=== PATIENT | female | born 1970 | race African-American/Black ===

== ENCOUNTER → 2016-09-07 | Outpatient (CLI) | payer BC ==
[~2016-09-07] MED LIST: ONDA4TAB65 PO; OXYC-57 PO
== END | disposition home or self-care (01) ==
LOC: C.PATHSPEC 17:13
PROVIDERS: ATTEND Obstetrics & Gynecology
DX: N84.1 Polyp of cervix uteri (principal)

== ENCOUNTER → 2016-09-07 | Outpatient (CLI) | payer BC | END | disposition home or self-care (01) | LOC: C.PAPS 11:54 | PROVIDERS: ATTEND Obstetrics & Gynecology | DX: Z01.419 Encounter for gynecological examination (general) (routine) without abnormal findings (principal) ==

== ENCOUNTER → 2017-04-09 | Outpatient (CLI) | payer BC | END | disposition home or self-care (01) | LOC: C.PATHSPEC 16:26 | PROVIDERS: ATTEND Obstetrics & Gynecology | DX: N92.0 Excessive and frequent menstruation with regular cycle (principal) ==

== ENCOUNTER 2017-04-12 07:13 | Observation (INO) | payer BC ==
[2017-04-09 14:45] VITALS: BMI 28.0
--- NOTE | 2017-04-09 15:14 | PAT Medication Instructions ---
Service Date Apr 09, 2017. Current Home Medication List No Active Prescriptions or Reported Meds Medication Instructions For Your Scheduled Surgery No Active Prescriptions or Reported Meds-- Please contact PAT department if starting any medications prior to surgery. If you have any questions please call us at [phone] or [phone] or [phone]
[2017-04-09 16:36] LABS: BASO % 0.6 %; BASO ABS # 0.03 K/uL (0-0.2); COMPLETE YES; EOS % 3.7 %; HEMATOCRIT 39.2 % (37-47); LYMPH % 48.4 %; LYMPH ABS # 2.47 K/uL (1.2-3.4); MEAN CELL VOLUME 84.1 fL (80-100); MEAN CORPUSCULAR HEMOGLOBIN 29.8 pg (25-34); MEAN CORPUSCULAR HGB CONC 35.5 g/dl (32-36); MEAN PLATELET VOLUME 12.1 fL (7.4-10.4); MONO % 6.7 %; NEUT % 40.6 %; PLATELET COUNT 236 K/uL (130-400); RED BLOOD COUNT 4.66 M/uL (4.2-5.4)
[2017-04-09 16:41] LABS: URINE APPEARANCE CLEAR (CLEAR); URINE BILIRUBIN NEG (NEG); URINE COLOR YELLOW; URINE NITRITE NEG (NEG); URINE SPECIFIC GRAVITY 1.031 (1.000-1.030); UROBILINOGEN NEG (NEG)
[2017-04-09 16:42] LABS: MANUAL MICROSCOPIC REQUIRED? NO; REVIEW REQ? NO
[2017-04-09 16:47] LABS: ALT/SGPT 31 U/L (12-78); AST/SGOT 20 U/L (15-37); BLOOD UREA NITROGEN 13 mg/dl (7-18); CALCIUM 8.6 mg/dl (8.5-10.1); CARBON DIOXIDE 24 mmol/L (21-32); CHLORIDE 108 mmol/L (98-107); CREATININE 0.82 mg/dl (0.60-1.20); GLUCOSE 85 mg/dl (70-99); POTASSIUM 3.8 mmol/L (3.5-5.1); SODIUM 139 mmol/L (136-145)
[2017-04-09 16:50] LABS: ALB/GLOB RATIO 0.9 (0.9-2); ALKALINE PHOSPHATASE 42 U/L (45-117)
[~2017-04-12] VITALS: Ht 162.6 cm; Wt 73.8 kg
[2017-04-12] VITALS (7 sets, daily range): BP systolic 102–138; BP diastolic 57–88; PULSE 56–78; TEMP 36.3–37.1; O2SAT 98–100; Ht 162.6 cm; Wt 73.8 kg
[~2017-04-12 07:13] MED LIST changes: +CEFAZOLIN 2000 MG/60 ML D5W 50 ML IV SCH; +LACTATED RINGER'S 1000ML 1,000 ML IV SCH; -ONDA4TAB65 PO; -OXYC-57 PO
--- NOTE | 2017-04-12 08:26 | History & Physical Bridge Note ---
H&P Re-Evaluation Bridge Note: I have examined the patient, reviewed the History & Physical and in the interval since the performance of the History & Physical I have noted the following changes of clinical significance: I have reviewed the procedure with patient; after discussion with both her and her oncologist (Dr Millan), will plan to preserve ovaries - as patient's breast cancer was triple negative and she was BRCA negative. Patient is in agreement.
[2017-04-12 08:27] LABS: PREG INTERNAL NEGATIVE QC NEG CLEAR BACKGROUND; PREG INTERNAL POSITIVE QC POS CONTROL LINE
[2017-04-12] MEDS ORDERED: METHYLENE BLUE 0.5% 10 ML VIAL ONE (08:30)
[2017-04-12] MEDS ORDERED: BUPIVACAINE 0.5 % 5 MG/1 ML MPF 30ML VIAL ONE (08:30)
[2017-04-12] MEDS ORDERED: ROCURONIUM BROMIDE 10 MG/ML 5 ML VIAL IV ONE ×2 (08:37→10:10)
[2017-04-12] MEDS ORDERED: FENTANYL CITRATE INJ 50 MCG/1 ML 2 ML VIAL ONE (08:37)
[2017-04-12] MEDS ORDERED: MIDAZOLAM HCL 1 MG/ML 2ML VIAL ONE (08:37)
[2017-04-12] MEDS ORDERED: EpHEDrine SULFATE INJ 50 MG/ML AMP ONE ×2 (08:37→10:26)
[2017-04-12] MEDS ORDERED: ONDANSETRON INJ 2 MG/ML 2 ML VIAL ONE (08:37)
[2017-04-12] MEDS ORDERED: SUCCINYLCHOLINE CHLORIDE 20 MG/ML 10 ML VIAL IV ONE (08:37)
[2017-04-12] MEDS ORDERED: GLYCOPYRROLATE INJ 0.2 MG/ML VIAL ONE ×2 (08:37→10:57)
[2017-04-12] MEDS ORDERED: NEOSTIGMINE METHYLSULFATE 5 MG/5 ML SYR ONE ×2 (08:37→10:57)
[2017-04-12] MEDS ORDERED: PROPOFOL IV EMULSION 10 MG/ML 20 ML VIAL IV ONE (08:37)
[2017-04-12] MEDS ORDERED: DEXAMETHASONE SOD INJ 4 MG/ML VIAL ONE (08:37)
[2017-04-12] MEDS ORDERED: LIDOCAINE HCL 2% 2 ML VIAL (20MG/ML) ONE (08:37)
[2017-04-12] MEDS ORDERED: PHENYLEPHRINE HCL INJ 10 MG/ML VIAL ONE (08:37)
[2017-04-12] MEDS ORDERED: HYDROmorphone INJ 2 MG/ML SYR/VIAL ONE (09:44)
[2017-04-12] MEDS ORDERED: WATER, STERILE FOR INJ 10 ML VIAL ONE (09:45)
[2017-04-12] MEDS ORDERED: FLUMAZENIL 0.1 MG/1 ML 10 ML VIAL IV PRN (10:30)
[2017-04-12] MEDS ORDERED: LABETALOL HCL IV 5 MG/ML 20ML IV PRN (10:30)
[2017-04-12] MEDS ORDERED: ONDANSETRON INJ 2 MG/ML 2 ML VIAL IV PRN (10:30)
[2017-04-12] MEDS ORDERED: EpHEDrine SULFATE INJ 50 MG/ML AMP IV PRN (10:30)
[2017-04-12] MEDS ORDERED: PROMETHAZINE HCL INJ 12.5 MG in SODIUM CHLORIDE 0.9% 50ML 50 ML IV PRN ×2 (10:30→12:15)
[2017-04-12] MEDS ORDERED: NALOXONE HCL 0.4 MG/1 ML VIAL/CARP IV PRN (10:30)
[2017-04-12] MEDS ORDERED: ATROPINE SULFATE 0.1 MG/ML 5ML SYR IV PRN (10:30)
[2017-04-12] MEDS ORDERED: TISSEEL FIBRIN SEALANT 4ML TOP ONE (11:21)
[2017-04-12] MEDS ORDERED: ACETAMINOPHEN 325 MG TAB PO PRN (12:15)
[2017-04-12] MEDS ORDERED: KETOROLAC TROMETHAMINE 30 MG/ML VIAL IV. PRN (12:15)
[2017-04-12] MEDS ORDERED: SIMETHICONE 80 MG CHEW PO PRN (12:15)
[2017-04-12] MEDS ORDERED: OXYCODONE/ACETAMINOPHEN 5-325 TAB PO PRN ×2 (12:15)
[2017-04-12] MEDS ORDERED: MAGNESIUM HYDROXIDE SUSP 30 ML UDC PO PRN (12:15)
--- NOTE | 2017-04-12 12:18 | [facility] Post Operative Brief Note ---
Immediate Operative Summary Operative Date Apr 12, 2017. Pre-Operative Diagnosis Intermenstral Bleeding, Uterine Leiomyoma Post-Operative Diagnosis Same as preop Procedure(s) Performed Robotic-Assisted Total Laparoscopic Hysterectomy Bilateral Salpingectomy; Cystoscopy Surgeon Dr. Gonzalez Merchandise Presentation Manager Surgeon(s) None Estimated Blood Loss 10ml Findings Enlarged uterus, tubes s/p tubal ligation, normal-appearing ovaries. Right physiologic-appearing ovarian cyst. Appendix/bowel appear normal. On cystoscopy, bilateral urine jets from ureters noted. Bladder otherwise normal. Specimens A. Cervix, Uterus, Bilateral Fallopian Tubes Drains dubois Anesthesia general Complication(s) None Disposition Recovery Room / PACU
[2017-04-12] MEDS: HYDROmorphone INJ 1 MG/ML SYR IV PRN ×8 (12:38→13:13)
[2017-04-12] MEDS ORDERED: PROMETHAZINE HCL INJ 12.5 MG in SODIUM CHLORIDE 0.9% 50ML 50 ML IV STA (13:14)
[2017-04-12] MEDS ORDERED: MoRPHine SULFATE 10 MG/ML CARP/VIAL IV PRN (13:15)
[2017-04-12] MEDS ORDERED: MoRPHine SULFATE 10 MG/ML CARP/VIAL ONE (13:20)
[2017-04-12] MEDS ORDERED: KETOROLAC TROMETHAMINE 30 MG/ML VIAL ONE (13:32)
[2017-04-12] MEDS ORDERED: NURSING VERBAL MED ORDER ONE (13:45)
[2017-04-12] MEDS ORDERED: KETOROLAC TROMETHAMINE 30 MG/ML VIAL IV. SCH (13:45)
[2017-04-12] MEDS ORDERED: IV FLUIDS COMPLETED PRN (14:15)
--- NOTE | 2017-04-12 14:31 | Anesthesiology Progress Note ---
Anesthesia Post Op Note Date & Time Apr 12, 2017 at 14:30 Vital Signs Pain Intensity: 3 Vital Signs Past 12 Hours Date Time Temp Pulse Resp B/P (MAP) Pulse Ox O2 Delivery O2 Flow Rate FiO2 04/12/17 13:57 67 16 100 04/12/17 13:57 66 16 04/12/17 13:56 126/84 04/12/17 13:52 67 9 04/12/17 13:52 68 9 100 04/12/17 13:51 135/76 04/12/17 13:47 66 8 04/12/17 13:47 66 8 100 04/12/17 13:46 124/71 04/12/17 13:42 67 8 04/12/17 13:42 67 8 100 04/12/17 13:41 137/78 04/12/17 13:37 64 8 04/12/17 13:37 64 8 100 04/12/17 13:36 133/91 04/12/17 13:32 61 10 04/12/17 13:32 61 10 100 04/12/17 13:31 135/82 04/12/17 13:27 70 17 04/12/17 13:27 67 17 100 04/12/17 13:26 141/87 04/12/17 13:22 70 15 100 04/12/17 13:22 70 15 04/12/17 13:21 117/83 04/12/17 13:19 71 17 04/12/17 13:19 72 17 100 04/12/17 13:17 156/84 04/12/17 13:16 156/84 04/12/17 13:14 65 14 100 04/12/17 13:14 64 14 04/12/17 13:12 123/66 04/12/17 13:09 75 19 04/12/17 13:09 76 19 100 04/12/17 13:07 119/80 04/12/17 13:04 77 13 99 04/12/17 13:04 78 13 04/12/17 13:01 122/75 04/12/17 12:59 75 22 100 04/12/17 12:59 73 22 04/12/17 12:58 73 16 04/12/17 12:58 73 16 100 04/12/17 12:56 138/83 04/12/17 12:54 36.3 77 16 138/83 (97) 100 Nasal Cannula 2 04/12/17 12:53 72 17 100 04/12/17 12:53 71 17 04/12/17 12:51 131/68 04/12/17 12:48 73 18 04/12/17 12:48 71 18 100 04/12/17 12:46 132/87 04/12/17 12:45 103/69 04/12/17 12:43 76 21 98 04/12/17 12:43 76 21 04/12/17 12:38 76 20 04/12/17 12:38 74 20 100 04/12/17 12:37 126/68 04/12/17 12:33 77 16 100 04/12/17 12:33 77 16 04/12/17 12:31 130/65 04/12/17 12:28 72 19 04/12/17 12:28 72 19 100 04/12/17 12:27 130/76 04/12/17 12:26 78 15 04/12/17 12:26 79 15 100 04/12/17 12:21 73 19 04/12/17 12:21 73 19 140/76 100 04/12/17 12:16 72 15 135/70 100 04/12/17 12:16 73 15 04/12/17 12:11 77 13 04/12/17 12:11 77 13 100 04/12/17 12:07 149/68 04/12/17 12:06 95 16 100 04/12/17 12:06 96 16 04/12/17 12:06 36.4 85 12 149/68 100 Mask 10 04/12/17 08:04 36.7 56 16 137/86 (103) 100 Room Air Notes Mental Status: alert / awake / arousable, participated in evaluation Pt Amnestic to Procedure: Yes Nausea / Vomiting: adequately controlled Pain: adequately controlled Airway Patency, RR, SpO2: stable & adequate BP & HR: stable & adequate Hydration State: stable & adequate Anesthetic Complications: no major complications apparent
[2017-04-12] MEDS ORDERED: ONDA4TAB65 PO (19:26)
[2017-04-12] MEDS ORDERED: OXYC-57 PO (19:26)
--- NOTE | 2017-04-12 19:48 | OB/GYN Progress Note ---
NEUROPSYCHIATRIST Progress Note Date of Service Apr 12, 2017. Subjective conversation w/ patient, physical exam Ambulation: limited ambulation Voiding: no voiding problems Passing Gas: No Diet Tolerance: Clear Liquids Pain: requesting pain meds Review of Systems Constitutional: No problem reported Respiratory: No problem reported Cardiac: No problem reported Breast: No problem reported Abdomen: + nausea, No vomiting Female : No problem reported Objective Vital Signs Date Time Temp Pulse Resp B/P (MAP) Pulse Ox O2 Delivery O2 Flow Rate FiO2 04/12/17 17:15 37.0 73 18 138/73 (94) 100 Room Air 04/12/17 16:15 36.5 77 16 126/72 (90) 100 Nasal Cannula 2.0 04/12/17 15:15 100 Nasal Cannula 04/12/17 15:15 36.3 69 18 126/77 (93) 100 Nasal Cannula 2.0 04/12/17 14:45 68 14 126/73 (90) 100 Nasal Cannula 2.0 04/12/17 14:15 100 Nasal Cannula 2.0 04/12/17 14:15 36.4 65 16 131/88 (102) 100 Nasal Cannula 2.0 04/12/17 13:57 67 16 100 04/12/17 13:57 66 16 04/12/17 13:56 126/84 04/12/17 13:52 67 9 04/12/17 13:52 68 9 100 04/12/17 13:51 135/76 04/12/17 13:47 66 8 04/12/17 13:47 66 8 100 04/12/17 13:46 124/71 04/12/17 13:42 67 8 04/12/17 13:42 67 8 100 04/12/17 13:41 137/78 04/12/17 13:37 64 8 04/12/17 13:37 64 8 100 04/12/17 13:36 133/91 04/12/17 13:32 61 10 04/12/17 13:32 61 10 100 04/12/17 13:31 135/82 04/12/17 13:27 70 17 04/12/17 13:27 67 17 100 04/12/17 13:26 141/87 04/12/17 13:22 70 15 100 04/12/17 13:22 70 15 04/12/17 13:21 117/83 04/12/17 13:19 71 17 04/12/17 13:19 72 17 100 04/12/17 13:17 156/84 04/12/17 13:16 156/84 04/12/17 13:14 65 14 100 04/12/17 13:14 64 14 04/12/17 13:12 123/66 04/12/17 13:09 75 19 04/12/17 13:09 76 19 100 04/12/17 13:07 119/80 04/12/17 13:04 77 13 99 04/12/17 13:04 78 13 04/12/17 13:01 122/75 04/12/17 12:59 75 22 100 04/12/17 12:59 73 22 04/12/17 12:58 73 16 04/12/17 12:58 73 16 100 04/12/17 12:56 138/83 04/12/17 12:54 36.3 77 16 138/83 (97) 100 Nasal Cannula 2 04/12/17 12:53 72 17 100 04/12/17 12:53 71 17 04/12/17 12:51 131/68 04/12/17 12:48 73 18 04/12/17 12:48 71 18 100 04/12/17 12:46 132/87 04/12/17 12:45 103/69 04/12/17 12:43 76 21 98 04/12/17 12:43 76 21 04/12/17 12:38 76 20 04/12/17 12:38 74 20 100 04/12/17 12:37 126/68 04/12/17 12:33 77 16 100 04/12/17 12:33 77 16 04/12/17 12:31 130/65 04/12/17 12:28 72 19 04/12/17 12:28 72 19 100 04/12/17 12:27 130/76 04/12/17 12:26 78 15 04/12/17 12:26 79 15 100 04/12/17 12:21 73 19 04/12/17 12:21 73 19 140/76 100 04/12/17 12:16 72 15 135/70 100 04/12/17 12:16 73 15 04/12/17 12:11 77 13 04/12/17 12:11 77 13 100 04/12/17 12:07 149/68 04/12/17 12:06 95 16 100 04/12/17 12:06 96 16 04/12/17 12:06 36.4 85 12 149/68 100 Mask 10 04/12/17 08:04 36.7 56 16 137/86 (103) 100 Room Air Physical Exam General Appearance: uncomfortable, in pain Abdomen: non tender, soft Laboratory Results Last 24 Hours Test 04/12/17 07:46 Human Chorionic Gonadotropin, Qual NEG Assessment and Plan Post-Op (Day #0) Continue Routine Care: Patient experiencing pain and nausea after surgery. Will plan to keep her overnight to get both of these under control. She has rec'd toradol, dilaudid in PACU, no pain meds since. Will give 4mg morphine IV. Continue zofran prn.
[2017-04-12] MEDS: MoRPHine SULFATE 4 MG/ML 1 ML CARP\\VIAL IV PRN (19:52)
[2017-04-12 20:30] LABS: HEMATOCRIT 37.7 % (37-47)
[2017-04-12] MEDS: DOCUSATE SODIUM 100 MG CAP PO SCH (21:00)
--- NOTE | 2017-04-12 21:02 | OPERATIVE REPORT ---
DATE OF OPERATION: 04/12/2017 PREOPERATIVE DIAGNOSIS: 1. Intermenstrual bleeding. 2. Pelvic pain. 3. Uterine leiomyoma. POSTOPERATIVE DIAGNOSIS: Same. PROCEDURES PERFORMED: 1. Robotic assisted total laparoscopic hysterectomy. 2. Bilateral salpingectomy 3. Cystoscopy. SURGEON: Nellie Gonzalez DO. TREATMENT SUPERVISOR: None. ESTIMATED BLOOD LOSS: 10 mL FINDINGS: Enlarged uterus, tubes are status post tubal ligation with normal appearing ovaries, right physiologic appearing ovarian cyst. Appendix and bowel appear normal on cystoscopy, bilateral urine jets from ureters noted, bladder otherwise normal. SPECIMENS: Cervix and uterus and bilateral fallopian tubes. DRAINS: Schafer catheter to gravity, clear yellow at conclusion of case. ANESTHESIA: General. COMPLICATIONS: None. DISPOSITION: Stable and good to recovery room. INDICATIONS FOR PROCEDURE: The patient is a 46-year-old G1, P1 with 2 additional step children, who had presented with chronic pelvic pain, heavy irregular menses and was known to have multiple uterine fibroids. Due to history of breast cancer, she is not a candidate for hormonal treatment and had tried NSAID to no avail. She elected to proceed with surgery. DESCRIPTION OF THE PROCEDURE: The patient was seen in the preoperative holding area where risks, benefits, alternatives to surgery were reviewed. She elected to proceed with the case. She was taken to the operating room where general anesthesia was introduced. She was prepared and draped in the usual sterile fashion with feet in Yellofin stirrups in the dorsal lithotomy position. A timeout was confirmed. The Schafer catheter was placed with clear yellow urine. A weighted speculum was placed in the vagina. Cervix was visualized, its anterior lip was grasped with a single tooth tenaculum. A stitch was placed at 3 o'clock and 9 o'clock on the cervix and the uterine manipulator was placed. Gloves were changed and attention was then turned to the abdomen. Prior to incision, the bilateral ureters were visualized peristalsing. Using the open Yandy technique, the supraumbilical incision was created and the trocar was inserted, camera was inserted to ensure intraabdominal placement. CO2 gas was used to inflate the abdomen to 15 mmHg. The patient was placed in Trendelenburg position. The above noted findings were seen. Bilateral trocars were then placed under direct visualization. The robot was docked. The left fallopian tube was then grasped and using monopolar scissors, was transected from the mesosalpinx. This was removed through the anesthesiology physician assistant port and sent to pathology. Next, the uteroovarian ligament was coagulated and transected followed by the round ligament. The left side of the uterus was skeletonized and the bladder flap was created on the anterior aspect of the uterus. The bladder was pushed down on the anterior aspect. The uterine artery was coagulated and transected. On the right side, the fallopian tube was transected using monopolar scissors from the underlying mesosalpinx. This was removed through the anesthesiology physician assistant port and sent to pathology as a single specimen. In a similar fashion to the left side, the uteroovarian and round ligaments were taken down and the bladder flap was connected and pushed away from the cuff. The uterine arteries were coagulated and transected. The vaginal cuff was then entered using monopolar scissors. The uterus and cervix were then amputated from the vaginal cuff and removed without difficulty through the vagina. The cuff was then reapproximated using O V-Loc suture in a running stitch. Excellent hemostasis was observed. A low pressure test was performed and the intra-abdominal pressure was taken down to 0. Again excellent hemostasis was observed. Methylene blue was given to aid in our cystoscopy and Tisseel hemostatic agent was applied to the vaginal cuff. Attention was then turned to the bladder to perform cystoscopy. The Schafer catheter was removed. Cystoscopy was performed. The bladder was visualized. Bilateral urine flow jets were noted from bilateral ureters and the bladder looked normal as well. The cystoscope was removed and a Schafer catheter was replaced. The robot was undocked and all trocars were removed, gas was desufflated from the abdomen. The fascial incision at the supraumbilical trocar site was reapproximated using 0 Vicryl and all incisions were reapproximated at this level of the skin with 4-0 Vicryl in a running subcuticular stitch. Dermabond glue was applied. The patient tolerated the procedure well. Sponge, instrument and needle counts were correct at the conclusion of the case x2. The patient was then taken to recovery room in stable and good condition. I attest to the content of the Intraoperative Record and any orders documented therein. Any exceptions are noted below. BRENDA
[2017-04-12] MEDS ORDERED: LACTATED RINGER'S 1000ML 1,000 ML IV SCH (22:15)
[2017-04-13 00:15] VITALS: BP 112/62; PULSE 73; TEMP 36.5; O2SAT 100
[2017-04-13] MEDS: MoRPHine SULFATE 4 MG/ML 1 ML CARP\\VIAL IV PRN ×2 (00:29→03:47)
[2017-04-13] MEDS: ONDANSETRON INJ 2 MG/ML 2 ML VIAL IV PRN ×2 (03:51→12:09)
[2017-04-13 04:05] VITALS: BP 106/47; PULSE 65; TEMP 37.2; O2SAT 97
[2017-04-13 08:00] VITALS: BP 111/58; PULSE 70; TEMP 37.2; O2SAT 99
[2017-04-13 08:25] LABS: BASO % 0.2 %; BASO ABS # 0.02 K/uL (0-0.2); COMPLETE YES; EOS % 0.1 %; HEMATOCRIT 35.1 % (37-47); IG% 0.1 %; LYMPH % 21.8 %; LYMPH ABS # 2.17 K/uL (1.2-3.4); MEAN CELL VOLUME 83.8 fL (80-100); MEAN CORPUSCULAR HEMOGLOBIN 29.4 pg (25-34); MEAN PLATELET VOLUME 10.6 fL (7.4-10.4); MONO % 5.8 %; PLATELET COUNT 206 K/uL (130-400); RED BLOOD COUNT 4.19 M/uL (4.2-5.4); WHITE BLOOD COUNT 9.94 K/uL (4.8-10.8)
[2017-04-13 08:52] LABS: BUN/CREATININE RATIO 12.1 (10-20); CALCIUM 8.5 mg/dl (8.5-10.1); CREATININE 0.91 mg/dl (0.60-1.20); POTASSIUM 3.8 mmol/L (3.5-5.1)
[2017-04-13] MEDS: DOCUSATE SODIUM 100 MG CAP PO SCH (08:52)
--- NOTE | 2017-04-13 08:56 | OB/GYN Progress Note ---
GUIDE ESCORT Progress Note Date of Service Apr 13, 2017. Subjective conversation w/ patient, physical exam Ambulation: ambulating normally Voiding: no voiding problems Passing Gas: No Diet Tolerance: Clear Liquids, Regular Diet (crackers) Pain: controlled with meds Review of Systems Constitutional: No problem reported Respiratory: No problem reported Cardiac: No problem reported Breast: No problem reported Abdomen: No problem reported Female : No problem reported Objective Vital Signs Date Time Temp Pulse Resp B/P (MAP) Pulse Ox O2 Delivery O2 Flow Rate FiO2 04/13/17 08:00 37.2 70 16 111/58 (75) 99 Room Air 04/13/17 04:05 37.2 65 18 106/47 (66) 97 Room Air 04/13/17 00:15 36.5 73 16 112/62 (79) 100 Room Air 04/13/17 00:15 100 Room Air 04/12/17 19:55 37.1 78 16 102/57 (72) 98 Room Air 04/12/17 17:15 37.0 73 18 138/73 (94) 100 Room Air 04/12/17 16:15 36.5 77 16 126/72 (90) 100 Nasal Cannula 2.0 04/12/17 15:15 100 Nasal Cannula 04/12/17 15:15 36.3 69 18 126/77 (93) 100 Nasal Cannula 2.0 04/12/17 14:45 68 14 126/73 (90) 100 Nasal Cannula 2.0 04/12/17 14:15 100 Nasal Cannula 2.0 04/12/17 14:15 36.4 65 16 131/88 (102) 100 Nasal Cannula 2.0 04/12/17 13:57 67 16 100 04/12/17 13:57 66 16 04/12/17 13:56 126/84 04/12/17 13:52 67 9 04/12/17 13:52 68 9 100 04/12/17 13:51 135/76 04/12/17 13:47 66 8 04/12/17 13:47 66 8 100 04/12/17 13:46 124/71 04/12/17 13:42 67 8 04/12/17 13:42 67 8 100 04/12/17 13:41 137/78 04/12/17 13:37 64 8 04/12/17 13:37 64 8 100 04/12/17 13:36 133/91 04/12/17 13:32 61 10 04/12/17 13:32 61 10 100 04/12/17 13:31 135/82 04/12/17 13:27 70 17 04/12/17 13:27 67 17 100 04/12/17 13:26 141/87 04/12/17 13:22 70 15 100 04/12/17 13:22 70 15 04/12/17 13:21 117/83 04/12/17 13:19 71 17 04/12/17 13:19 72 17 100 04/12/17 13:17 156/84 04/12/17 13:16 156/84 04/12/17 13:14 65 14 100 04/12/17 13:14 64 14 04/12/17 13:12 123/66 04/12/17 13:09 75 19 04/12/17 13:09 76 19 100 04/12/17 13:07 119/80 04/12/17 13:04 77 13 99 04/12/17 13:04 78 13 04/12/17 13:01 122/75 04/12/17 12:59 75 22 100 04/12/17 12:59 73 22 04/12/17 12:58 73 16 04/12/17 12:58 73 16 100 04/12/17 12:56 138/83 04/12/17 12:54 36.3 77 16 138/83 (97) 100 Nasal Cannula 2 04/12/17 12:53 72 17 100 04/12/17 12:53 71 17 04/12/17 12:51 131/68 04/12/17 12:48 73 18 04/12/17 12:48 71 18 100 04/12/17 12:46 132/87 04/12/17 12:45 103/69 04/12/17 12:43 76 21 98 04/12/17 12:43 76 21 04/12/17 12:38 76 20 04/12/17 12:38 74 20 100 04/12/17 12:37 126/68 04/12/17 12:33 77 16 100 04/12/17 12:33 77 16 04/12/17 12:31 130/65 04/12/17 12:28 72 19 04/12/17 12:28 72 19 100 04/12/17 12:27 130/76 04/12/17 12:26 78 15 04/12/17 12:26 79 15 100 04/12/17 12:21 73 19 04/12/17 12:21 73 19 140/76 100 04/12/17 12:16 72 15 135/70 100 04/12/17 12:16 73 15 04/12/17 12:11 77 13 04/12/17 12:11 77 13 100 04/12/17 12:07 149/68 04/12/17 12:06 95 16 100 04/12/17 12:06 96 16 04/12/17 12:06 36.4 85 12 149/68 100 Mask 10 Physical Exam General Appearance: WELL-APPEARING, NO APPARENT DISTRESS Respiratory/Chest: no respiratory distress Cardiovascular: regular rate, rhythm Abdomen: normal bowel sounds, soft Incision Description: Clean, Dry & Intact Extremities: normal inspection Laboratory Results Last 24 Hours Test 04/12/17 20:09 04/13/17 08:10 Hemoglobin 13.4 g/dL 12.3 g/dL Hematocrit 37.7 % 35.1 % White Blood Count 9.94 K/uL Red Blood Count 4.19 M/uL Mean Corpuscular Volume 83.8 fL Mean Corpuscular Hemoglobin 29.4 pg Mean Corpuscular Hemoglobin Concent 35.0 g/dl Platelet Count 206 K/uL Mean Platelet Volume 10.6 fL Neutrophils (%) (Auto) 72.0 % Lymphocytes (%) (Auto) 21.8 % Monocytes (%) (Auto) 5.8 % Eosinophils (%) (Auto) 0.1 % Basophils (%) (Auto) 0.2 % Neutrophils # (Auto) 7.15 K/uL Lymphocytes # (Auto) 2.17 K/uL Monocytes # (Auto) 0.58 K/uL Eosinophils # (Auto) 0.01 K/uL Basophils # (Auto) 0.02 K/uL RDW Standard Deviation 38.6 fL RDW Coefficient of Variation 12.8 % Immature Granulocyte % (Auto) 0.1 % Immature Granulocyte # (Auto) 0.01 K/uL Sodium Level 138 mmol/L Potassium Level 3.8 mmol/L Chloride Level 106 mmol/L Carbon Dioxide Level 23 mmol/L Anion Gap 9.0 mmol/L Blood Urea Nitrogen 11 mg/dl Creatinine 0.91 mg/dl Est Creatinine Clear Calc Drug Dose 75.2 ml/min Estimated GFR () 87.1 Estimated GFR (Non- 75.1 BUN/Creatinine Ratio 12.1 Random Glucose 95 mg/dl Calcium Level 8.5 mg/dl Assessment and Plan Post-Op (Day #0) Day Number: 1 Continue Routine Care: POD#1 s/p RALH/BS/cysto. Doing well. Ambulating ok, nausea is improving, pain is improving with meds. Vitals and labs are stable. Will discharge to home today. Reviewed discharge instructions. Rx percocet, zofran. Followup 2 weeks in office.
--- NOTE | 2017-04-13 08:57 | Discharge Instructions ---
Discharge Instructions Date of Service Apr 13, 2017. Admission Reason for Admission: Female Pelvic Pain, Uterine Leiomyoma Discharge Discharge Diagnosis / Problem: robotic hysterectomy Discharge Goals Goal(s): Routine recovery after surgery Activity Recommendations Activity Limitations: per Instructions/Follow-up section . Instructions / Follow-Up Instructions / Follow-Up ACTIVITY RECOMMENDATIONS: Activity: * During the first week at home, your activity should be similar to that done at the hospital prior to discharge. Your primary activity is in-house walking interspersed with rest periods. Preparing lunch for yourself is acceptable. You may go up and down stairs. Try to stay up progressively longer periods of time to help regain your strength more quickly. * During the second week at home, activities should include some meal preparation, walking to strengthen abdominal muscles and riding in a car. You may drive a car and make brief shopping trips at the end of the second week at home. * Lifting should not exceed 15-20 pounds during the first month after surgery. * Sexual intercourse can usually be resumed about 6 weeks after surgery depending on findings at your post-operative examinations. Bathing: * Showers or baths are permissible. Sitting in four to six inches of hot water (sitz bath) is often comforting after vaginal surgery and is permitted at any time. A sitz bath at bedtime can also assist in a better night's sleep. SPECIAL CARE INSTRUCTIONS: The major discomforts related to surgery have now passed and progressive improvement will occur. The tight uncomfortable feeling in the abdominal, pelvic and back area will gradually fade away. Fatigue may take the longest to disappear; your energy level may take several weeks to return to normal. At times you may become frustrated or impatient over not feeling as well or doing as much as you'd like , but this is a normal reaction to surgery and will pass with time. Vaginal Discharge: * Odorous, blood-tinged or brownish discharge may be present for one to three weeks after surgery. * Pads should be used and not tampons. * Stitches may be passed vaginally. * Bleeding may be somewhat increased approximately two weeks after surgery, which is related to the stitches dissolving. * If bleeding becomes free flowing, notify our office at . Bowel Care: * Constipation after surgery is very common. Foods that promote bowel activity (bran, fruit, prune juice) should be included in your diet. * A capsule, DIALOSE-PLUS, can be purchased without a prescription and can be taken daily (one or two capsules) to assist in promoting bowel activity. * If you have had vaginal surgery involving your rectum, we will discuss this when discharged from the hospital. Catheter or "CYSTO-CATH": * Approximately 80% of "bladder repair" patients will require a catheter at home until the swelling recedes. * Some patients require days to weeks before adequate bladder emptying will resume. * In general, after each time you urinate, un-clamp the catheter again. Measure the amount in the bag. When this is consistently below 100cc, call the office to make an appointment to have the catheter removed. Temperature: * Any fever above 100.4 degrees F should be reported to our office at [phone]. FOLLOW-UP: Post-Operative Appointments: * Individual instructions will have been given about the timing of your first examination, but this is usually at the end of the second week home. * You will need to call the office at soon after discharge to make the appointment for your post-op check-up if it has not already been scheduled. * Additional information regarding activity, sexual intercourse and when to return to work will be given at this appointment. WE WISH YOU A SPEEDY RECOVERY! Current Hospital Diet Patient's current hospital diet: Regular Diet Discharge Diet Recommended Diet: Regular Diet Procedures Procedures Performed: Robotic-Assisted Total Laparoscopic Hysterectomy Bilateral Salpingectomy; Cystoscopy Pending Studies Studies pending at discharge: yes List of pending studies: pathology Medical Emergencies . Who to Call and When: Medical Emergencies: If at any time you feel your situation is an emergency, please call 911 immediately. . Non-Emergent Contact Non-Emergency issues call your: Primary Care Provider, Front Worker . . "Provider Documentation" section prepared by Nellie Gonzalez. . VTE Core Measure Inpt VTE Proph given/why not?: SCD's
[2017-04-13 12:05] VITALS: BP 108/62; PULSE 58; TEMP 36.7; O2SAT 98
[2017-04-13 13:15] VITALS: BP 108/62; PULSE 58; TEMP 36.7; O2SAT 98
--- NOTE | 2017-04-16 09:24 | Discharge Summary ---
Discharge Summary Date of Service Apr 16, 2017. Discharge Summary Admission Date: Apr 12, 2017 at 12:16 Discharge Date: Apr 13, 2017 Discharge Disposition: Home Principal Diagnosis: pelvic pain, heavy menses, uterine fibroids Procedures: robotic-assisted total laparoscopic hysterectomy, bilat salpingectomy Consultations: anesthesia Medication Reconciliation New Medications: Ondansetron Hcl (Zofran) 4 Mg Tab 1 TAB PO Q4H PRN for nausea for 3 Days, #20 TAB 2 Refills Oxycodone/Acetaminophen 5MG/325MG (Percocet 5MG/325MG) Tab 1-2 TABLETS PO Q4 PRN for Pain for 7 Days, #30 TAB Hospital Course Patient was admitted following surgery. She required overnight stay to get nausea and pain under better control. She was discharged on POD#1 in stable and good condition. Total Time Spent: Less than 30 minutes This includes examination of the patient, discharge planning, medication reconciliation, and communication with other providers. Discharge Instructions Please refer to the electronic Patient Visit Report (Discharge Instructions) for additional information. Follow-Up Office in 2 weeks and 6 weeks.
== END 2017-04-13 13:15 | disposition home or self-care (01) ==
LOC: C.ACU 07:13 → C.MS4N 12:16 → ENRESERV 13:35
PROVIDERS: ADMIT Obstetrics & Gynecology; ATTEND Obstetrics & Gynecology
DX: N84.1 Polyp of cervix uteri (principal); N84.0 Polyp of corpus uteri; D25.9 Leiomyoma of uterus, unspecified; D64.9 Anemia, unspecified; Z85.3 Personal history of malignant neoplasm of breast

== ENCOUNTER → 2017-06-27 | Outpatient (CLI) | payer BC ==
[~2017-06-27] MED LIST changes: -CEFAZOLIN 2000 MG/60 ML D5W 50 ML IV SCH; -LACTATED RINGER'S 1000ML 1,000 ML IV SCH; +ONDA4TAB65 PO
[2017-06-27 14:20] LABS: URINE APPEARANCE CLEAR (CLEAR); URINE BILIRUBIN NEG (NEG); URINE COLOR YELLOW; URINE EPITHELIAL CELL AUTO >30 /lpf (0-5); URINE NITRITE NEG (NEG); URINE SPECIFIC GRAVITY 1.025 (1.000-1.030); UROBILINOGEN NEG (NEG)
[2017-06-27 14:25] LABS: MANUAL MICROSCOPIC REQUIRED? NO; REVIEW REQ? NO
== END | disposition home or self-care (01) ==
LOC: C.LABSPEC 13:31
PROVIDERS: ATTEND Obstetrics & Gynecology
DX: R30.0 Dysuria (principal)

== ENCOUNTER → 2017-07-23 | Outpatient (CLI) | payer OTHER ==
[2017-07-23 17:52] LABS: BASO % 0.7 %; BASO ABS # 0.04 K/uL (0-0.2); EOS % 5.7 %; EOS ABS # 0.32 K/uL (0-0.5); HEMATOCRIT 40.2 % (37-47); HEMOGLOBIN 14.5 g/dL (12.0-16.0); IG# 0.01 K/uL (0.00-0.02); LYMPH % 48.6 %; LYMPH ABS # 2.72 K/uL (1.2-3.4); MEAN CELL VOLUME 84.3 fL (80-100); MEAN CORPUSCULAR HEMOGLOBIN 30.4 pg (25-34); MEAN CORPUSCULAR HGB CONC 36.1 g/dl (32-36); MEAN PLATELET VOLUME 11.1 fL (7.4-10.4); MONO % 8.4 %; MONO ABS # 0.47 K/uL (0.11-0.59); NEUT % 36.4 %; NEUT ABS # 2.04 K/uL (1.4-6.5); PLATELET COUNT 193 K/uL (130-400); RED CELL DISTRIBUTION WIDTH CV 13.1 % (11.5-14.5); RED CELL DISTRIBUTION WIDTH SD 39.6 fL (36.4-46.3)
== END | disposition home or self-care (01) ==
LOC: C.LAB1850 16:51
PROVIDERS: ATTEND Obstetrics & Gynecology
DX: R10.2 Pelvic and perineal pain (principal)